=== PATIENT | female | born 1990 | race African-American/Black ===

== ENCOUNTER 2019-02-24 09:25 | Emergency (ER) | payer SELFPAY ==
[2019-02-24 09:49] VITALS: BP 110/78
--- NOTE | 2019-02-24 09:58 | ED Physician Documentation ---
General Adult - HISTORIAN Historian: patient - HPI Stated Complaint: Dizzy Chief Complaint: General Adult Additional Information: Patient presents to ED with complaints of dizziness and wavy lines in her vision. Patient states she was just release from longterm on . While in longterm she was on Cymbalta, however, she was not given a prescription for this medication. Now she states she feels dizzy and is crying all the time. Onset: days ago (2) Timing: still present Severity: mild - ROS CONST: denies: fever EYES/ENT: none CVS/RESP: denies: chest pain, shortness of breath, cough GI/: denies: vomiting, nausea MS/SKIN/LYMPH: none NEURO/PSYCH: depression. denies: headache - PAST HX Past History: none Other History: none Surgeries/Procedures: none Allergies/Adverse Reactions: Allergies Allergy/AdvReac Type Severity Reaction Status Date / Time No Known Allergies Allergy Verified 02/24/19 09:44 Home Medications: Ambulatory Orders Medication Instructions Recorded DULoxetine HCL [Cymbalta] 30 mg PO HS #30 capsule. 02/24/19 DULoxetine HCL [Cymbalta] 30 mg PO HS #90 capsule. 02/24/19 Hydroxyzine Pamoate [Vistaril] 75 mg PO AM 02/24/19 - SOCIAL HX Smoking History: non-smoker Alcohol Use: none Drug Use: none - FAMILY HX Family History: No - VITAL SIGNS Vital Signs: Vital Signs Temp Pulse Resp BP Pulse Ox 98.2 F 72 16 110/78 98 02/24/19 09:44 02/24/19 09:44 02/24/19 09:44 02/24/19 09:44 02/24/19 09:44 - REVIEWED ASSESSMENTS Nursing Assessment Reviewed: Yes Vitals Reviewed: Yes ED Results Lab/Radiology - Orders Orders: ED Orders Category Date Time Status Chem Sticks Med 02/24/19 09:44 Once 1 each NOW ONE General Adult Physical Exam - PHYSICAL EXAM GENERAL APPEARANCE: no distress EENT: [place] NECK: supple RESPIRATORY: no resp distress, chest non-tender, breath sounds normal CVS: reg rate & rhythm, heart sounds normal ABDOMEN: soft, normal bowel sounds BACK: normal inspection. No: no CVA tenderness SKIN: warm/dry, normal color EXTREMITIES: non-tender, normal range of motion, no evidence of injury NEURO: oriented X3, mood/affect nml Discharge Clincal Impression: SSRI (selective serotonin reuptake inhibitor) causing adverse effect in therapeutic use Prescriptions: DULoxetine HCL [Cymbalta] 30 mg PO HS #90 capsule. DULoxetine HCL [Cymbalta] 30 mg PO HS #30 capsule. Referrals: Primary Doctor,No [Primary Care Provider] - 2 Days Condition: Stable Disposition: 01 HOME, SELF-CARE Decision to Admit: NO Date of Decison to Admit: 02/24/19 Decision Time: 09:59
== END 2019-02-24 10:13 | disposition home or self-care (01) ==
LOC: ED 09:25
DX: R42 Dizziness and giddiness (principal); T43.225A Adverse effect of selective serotonin reuptake inhibitors, initial encounter; Y92.009 Unspecified place in unspecified non-institutional (private) residence as the place of occurrence of the external cause
CPT/HCPCS: 99283